=== PATIENT | female | born 1935 | race Caucasian/White ===

== ENCOUNTER 2016-10-18 14:03 | Emergency (ER) | payer MEDICARE ==
[~2016-10-18] VITALS: Ht 167.6 cm; Wt 62.0 kg
[~2016-10-18 14:03] MED LIST: PRED10PA2 PO; TRAM50TA PO
[2016-10-18 14:06] VITALS: BP 178/90; PULSE 84; RESP 15; TEMP 98.2; O2SAT 98
[2016-10-18 15:25] VITALS: BP 224/100; PULSE 60; PULSE 63; RESP 16; O2SAT 100
[2016-10-18] MEDS ORDERED: LOSA100T PO (15:31)
[2016-10-18] MEDS ORDERED: LEVO50TA4 PO (15:31)
[2016-10-18] MEDS ORDERED: PRAV20TA2 PO (15:31)
--- NOTE | 2016-10-18 15:37 | PD ---
HPI Chief Complaint: Respiratory Symptoms Time Seen by Provider: 15:21 Travel History International Travel<30 days: No Contact w/Intl Traveler<30days: No Traveled to known affect area: No History of Present Illness HPI 80-year-old female complains of right-sided chest wall pain. Patient states that the pain started about 2-1/2 weeks ago. Patient states that the pain is sharp stabbing pain constant pain localized to right chest wall area. Patient denies any pain radiation. Patient states that the pain is not worse with deep breathing. Patient denies any coughing congestion fever chills. Patient denies any injury to the right chest wall. Patient states that she has shortness of breath with the pain. Patient denies any history of DVT or PE. Patient has history of hypertension, hypothyroidism and hyperlipidemia. Patient has been taking Naprosyn for pain. PFSH Past Medical History Hx Anticoagulant Therapy: Yes (BABY ASPIRIN EVERY NOW AND THEN) Cancer: No Cardiovascular Problems: Yes (HTN) High Cholesterol: Yes Diabetes: No Hepatitis: No Hiatal Hernia: No Hypertension: Yes Immune Disorder: No Musculoskeletal: Yes (BACK) Thyroid Disease: Yes Influenza Vaccination: Yes ?: Not Past Surgical History Appendectomy: Yes Eye Surgery: Yes (CATARACT SX BOTH EYES) Gynecologic Surgery: Yes (HYSTERECTOMY AND APPY, PROCEDURE AGE 21) Hysterectomy: Yes Other Surgery: Yes (LOWER BACK SURGERY) Social History Alcohol Use: No Tobacco Use: No Substance Use: No Allergies-Medications (Allergen,Severity, Reaction): Coded Allergies: No Known Allergies (Unverified , 10/18/16) Reported Meds & Prescriptions Reported Meds & Active Scripts Active Reported Levothyroxine (Levothyroxine Sodium) 50 Mcg Tab 50 Mcg PO DAILY Losartan (Losartan Potassium) 100 Mg Tab 100 Mg PO DAILY Pravastatin 20 Mg Tab 20 Mg PO HS Review of Systems General / Constitutional: No: Fever Eyes: No: Visual changes HENT: No: Headaches Cardiovascular: Positive: Chest Pain or Discomfort Respiratory: Positive: Shortness of Breath Gastrointestinal: No: Abdominal Pain Genitourinary: No: Dysuria Musculoskeletal: No: Pain Skin: No Rash Neurologic: No: Weakness Psychiatric: No: Depression Endocrine: No: Polydipsia Hematologic/Lymphatic: No: Easy Bruising Physical Exam Narrative GENERAL: Well-nourished, well-developed patient. SKIN: Focused skin assessment warm/dry. HEAD: Normocephalic. EYES: No scleral icterus. No injection or drainage. NECK: Supple, trachea midline. No JVD or lymphadenopathy. CARDIOVASCULAR: Regular rate and rhythm without murmurs, gallops, or rubs. RESPIRATORY: Breath sounds equal bilaterally. No accessory muscle use. GASTROINTESTINAL: Abdomen soft, non-tender, nondistended. MUSCULOSKELETAL: No cyanosis, or edema. BACK: Nontender without obvious deformity. No CVA tenderness. Neurologic exam normal. Data Data Last Documented VS Vital Signs Date Time Temp Pulse Resp B/P Pulse Ox O2 Delivery O2 Flow Rate FiO2 10/18/16 17:39 62 16 181/88 98 10/18/16 16:18 Room Air 10/18/16 14:06 98.2 Orders Electrocardiogram (10/18/16 ) Complete Blood Count With Diff (10/18/16 15:29) Comprehensive Metabolic Panel (10/18/16 15:29) Prothrombin Time / Inr (Pt) (10/18/16 15:29) Act Partial Throm Time (Ptt) (10/18/16 15:29) Iv Access Insert/Monitor (10/18/16 15:29) Ecg Monitoring (10/18/16 15:29) Oximetry (10/18/16 15:29) Chest, Single Ap (10/18/16 15:29) Ct Pulmonary Angiogram (10/18/16 15:35) Hydralazine Inj (Apresoline Inj) (10/18/16 15:45) Creatine Kinase (Cpk) (10/18/16 15:40) Troponin I (10/18/16 15:40) Iohexol 350 Inj (Omnipaque 350 Inj) (10/18/16 17:51) Labs Laboratory Tests Test 10/18/16 15:40 White Blood Count 7.0 TH/MM3 Red Blood Count 4.24 MIL/MM3 Hemoglobin 13.4 GM/DL Hematocrit 39.9 % Mean Corpuscular Volume 94.0 FL Mean Corpuscular Hemoglobin 31.6 PG Mean Corpuscular Hemoglobin 33.6 % Concent Red Cell Distribution Width 13.2 % Platelet Count 263 TH/MM3 Mean Platelet Volume 7.1 FL Neutrophils (%) (Auto) 53.7 % Lymphocytes (%) (Auto) 30.4 % Monocytes (%) (Auto) 11.9 % Eosinophils (%) (Auto) 3.4 % Basophils (%) (Auto) 0.6 % Neutrophils # (Auto) 3.8 TH/MM3 Lymphocytes # (Auto) 2.1 TH/MM3 Monocytes # (Auto) 0.8 TH/MM3 Eosinophils # (Auto) 0.2 TH/MM3 Basophils # (Auto) 0.0 TH/MM3 CBC Comment DIFF FINAL Differential Comment Prothrombin Time 9.9 SEC Prothromb Time International 0.9 RATIO Ratio Activated Partial 26.3 SEC Thromboplast Time Sodium Level 139 MEQ/L Potassium Level 4.2 MEQ/L Chloride Level 105 MEQ/L Carbon Dioxide Level 23.9 MEQ/L Anion Gap 10 MEQ/L Blood Urea Nitrogen 19 MG/DL Creatinine 0.83 MG/DL Estimat Glomerular Filtration 66 ML/MIN Rate Random Glucose 76 MG/DL Calcium Level 9.4 MG/DL Total Bilirubin 0.3 MG/DL Aspartate Amino Transf 21 U/L (AST/SGOT) Alanine Aminotransferase 23 U/L (ALT/SGPT) Alkaline Phosphatase 86 U/L Total Creatine Kinase 81 U/L Troponin I LESS THAN 0.02 NG/ML Total Protein 7.7 GM/DL Albumin 4.3 GM/DL MDM Medical Decision Making Medical Screen Exam Complete: Yes Emergency Medical Condition: Yes Interpretation(s) 1536 PM. EKG shows sinus bradycardic nonspecific ST-T wave change. Rate 57. [address] Angiography 10/18/16 1535 Signed Impressions: Service Date/Time: Tuesday, October 18, 2016 17:48 - CONCLUSION: 1. No CT evidence for pulmonary embolism to the segmental level. 2. Mild biapical scarring. Otherwise, unremarkable CT examination of the chest. Jimbo Tolbert MD Chest X-Ray 10/18/16 1529 Signed Impressions: Service Date/Time: Tuesday, October 18, 2016 15:29 - CONCLUSION: No acute disease. Sam Ha MD CBC within normal limit. CMP within normal limit. Cardiac enzymes are normal. Differential Diagnosis Differential diagnosis including musculoskeletal, rib fracture, pneumothorax, PE Narrative Course 80-year-old female complains of right-sided chest wall pain and shortness of breath Diagnosis Primary Impression: Chest wall pain Patient Instructions: General Instructions Additional Instructions: Take medication as needed for pain. Follow-up with personal physician. Return if worse. Med/Other Pt SpecificInfo: Prescription(s) given Scripts Acetaminophen-Codeine (Tylenol-Codeine #3)300-30 mg Tab1 Tab PO Q6HR PRN (PAIN SCALE 1 TO 10) #30 TAB Prov:iKke Murphy MD 10/18/16 Meloxicam (Mobic)15 Mg Tab15 Mg PO DAILY #20 TAB Prov:Kike Murphy MD 10/18/16 Disposition: 01 DISCHARGE HOME Condition: Stable Kike Murphy MD Oct 18, 2016 15:37
[2016-10-18] MEDS ORDERED: hydrALAZINE HCL 20 MG/ML VIAL IV PUSH ONE (15:45)
--- NOTE | 2016-10-18 15:59 | RADRPT ---
EXAM DATE/TIME: 10/18/2016 15:29 [facility] COMPARISON: No previous studies available for comparison. INDICATIONS : Right lower rib pain. No known injury. MEDICAL HISTORY : None. SURGICAL HISTORY : None. ENCOUNTER: Initial ACUITY: 1 month PAIN SCORE: 4/10 LOCATION: Right lower chest FINDINGS: A single view of the chest demonstrates the lungs to be symmetrically aerated without evidence of mas s, infiltrate or effusion. The cardiomediastinal contours are unremarkable. Osseous structures are intact. CONCLUSION: No acute disease. Sam Ha MD on October 18, 2016 at 15:57 Board Certified Radiologist. This report was verified electronically.
[2016-10-18 16:14] LABS: AUTOMATED NEUTROPHIL # 3.8 TH/MM3 (1.8-7.7); BASOPHIL % 0.6 % (0.0-2.0); EOSINOPHIL # 0.2 TH/MM3 (0-0.4); EOSINOPHIL % 3.4 % (0.0-4.0); HEMATOCRIT 39.9 % (35.0-46.0); HEMO FLAGS DIFF FINAL; LYMPH % 30.4 % (9.0-44.0); LYMPHOCYTE # 2.1 TH/MM3 (1.0-4.8); MEAN CORPUSCULAR HEMOGLOBIN 31.6 PG (27.0-34.0); MEAN CORPUSCULAR HGB CONC 33.6 % (32.0-36.0); MONO % 11.9 % (0.0-8.0); NEUT % 53.7 % (16.0-70.0); PLATELET COUNT 263 TH/MM3 (150-450); RED BLOOD COUNT 4.24 MIL/MM3 (4.00-5.30); RED CELL DISTRIBUTION WIDTH 13.2 % (11.6-17.2)
[2016-10-18 16:16] LABS: APTT (PATIENT) 26.3 SEC (24.3-30.1); INTERNATIONAL NORMALIZED RATIO 0.9 RATIO; PROTHROMBIN TIME - PATIENT 9.9 SEC (9.8-11.6)
[2016-10-18 16:18] VITALS: BP 182/80; PULSE 62; RESP 18; O2SAT 100
[2016-10-18 16:31] LABS: ALKALINE PHOSPHATASE 86 U/L (45-117); ALT (GPT) 23 U/L (10-53); ANION GAP 10 MEQ/L (5-15); AST (GOT) 21 U/L (15-37); BICARBONATE 23.9 MEQ/L (21.0-32.0); BLOOD UREA NITROGEN 19 MG/DL (7-18); CHLORIDE 105 MEQ/L (98-107); GLOMERULAR FILTRATION RATE 66 ML/MIN (>89); POTASSIUM 4.2 MEQ/L (3.5-5.1); SODIUM (NA) 139 MEQ/L (136-145); TOTAL BILIRUBIN ADULT 0.3 MG/DL (0.2-1.0)
[2016-10-18 16:45] LABS: CREATINE KINASE 81 U/L (26-192)
[2016-10-18 17:39] VITALS: BP 181/88; PULSE 62; RESP 16; O2SAT 98
[2016-10-18] MEDS ORDERED: IOHEXOL 350 MG/ML 10 ML VIAL (for RAD DIAG) IV ONE (17:51)
--- NOTE | 2016-10-18 18:04 | RADRPT ---
EXAM DATE/TIME: 10/18/2016 17:48 [facility] COMPARISON: No previous studies available for comparison. INDICATIONS : Patient complains of shortness of breath and right side chest pain. IV CONTRAST: 80 cc Omnipaque 350 (iohexol) IV RADIATION DOSE: 23.33 CTDIvol (mGy) MEDICAL HISTORY : Cardiovascular disease. Hypertension. SURGICAL HISTORY : Appendectomy. Hysterectomy. ENCOUNTER: Initial ACUITY: 1 day PAIN SCALE: 5/10 LOCATION: Right chest TECHNIQUE: Volumetric scanning of the chest was performed using a pulmonary embolism protocol MIP images were re constructed. Using automated exposure control and adjustment of the mA and/or kV according to patien t size, radiation dose was kept as low as reasonably achievable to obtain optimal diagnostic quality images. DICOM format image data is available electronically for review and comparison. Follow-up recommendations for incidentally detected pulmonary nodules are based at a minimum on nodul e size and patient risk factors according to Fleischner Society Guidelines. FINDINGS: PULMONARY ARTERIES: No filling defects are seen in the pulmonary arteries through the segmental level. LUNGS: Mild biapical scarring. There is no consolidation or pneumothorax . No concerning pulmonary nodule i s visualized. PLEURAE: There is no pleural thickening or pleural effusion. MEDIASTINUM: There is good visualization of the great vessels of the middle mediastinum. No evidence of mediastin al or hilar adenopathy/mass. MUSCULOSKELETAL: Within normal limits for patient age. MISCELLANEOUS: The visualized upper abdominal organs demonstrate no acute abnormality. CONCLUSION: 1. No CT evidence for pulmonary embolism to the segmental level. 2. Mild biapical scarring. Otherwise, unremarkable CT examination of the chest. Jimbo Tolbert MD on October 18, 2016 at 17:58 Board Certified Radiologist. This report was verified electronically.
[2016-10-18] MEDS ORDERED: MOBI15TA PO (18:42)
[2016-10-18] MEDS ORDERED: TYLETAB34 PO (18:42)
--- NOTE | 2016-10-19 19:04 | EKG ---
Date Performed: 10/18/2016 Time Performed: 15:01:53 PTAGE: 80 years EKG: SINUS BRADYCARDIA BORDERLINE ECG PREVIOUS TRACING : 08/29/2012 12.06 Compared to prior tracing no significant change DOCTOR: William Centeno Interpretating Date/Time 10/19/2016 19:03:37
== END 2016-10-18 19:13 | disposition home or self-care (01) ==
LOC: NEPE 14:03
DX: R07.89 Other chest pain (principal)
CPT/HCPCS: 71010; 71275; 80053; 82550; 84484; 85025; 85610; 85730; 93005; 96374; 99285; J0360; Q9967